=== PATIENT | female | born 1990 | race Two or more races ===

== ENCOUNTER 2017-06-20 12:26 | Emergency (ER) | payer OTHER ==
[2017-06-20 12:35] VITALS: RESP 16; TEMP 98.4
--- NOTE | 2017-06-20 12:46 | CPEKG ---
Heart Rate: 60 RR Interval: 1000 P-R Interval: 176 QRSD Interval: 104 QT Interval: 408 QTC Interval: 408 P Romney: 22 QRS Romney: 40 T Wave Romney: 5 EKG Severity - NORMAL ECG - EKG Impression: SINUS RHYTHM Electronically Signed By: Tony Farris 20-Jun-2017 14:37:22
[2017-06-20] MEDS ORDERED: NS 1,000 ML IV ONE (13:02)
[2017-06-20 13:13] LABS: % IMMATURE GRANULYOCYTES 0.4 % (0.0-1.1); ABSOLUTE IMMATURE GRANULOCYTES 0.04 10^3/uL (0.00-0.10); ADD DIFF? NO; ADD MORPH? NO; ADD SCAN? NO; ATYPICAL LYMPHOCYTE FLAG 0 (0-99); FRAGMENT RBC FLAG 0 (0-99); HEMOGLOBIN 12.1 g/dL (12.6-16.3); LEFT SHIFT FLG 0 (0-99); LIPEMIA HEMOLYSIS FLAG 90 (0-99); MEAN CELL HEMOGLOBIN 28.6 pg (27.9-34.1); MEAN CELL HEMOGLOBIN CONCENTR. 34.6 g/dL (32.4-36.7); MEAN CELL VOLUME 82.7 fL (81.5-99.8); MEAN PLATELET VOLUME 9.5 fL (8.7-11.7); PLATELET CLUMPS FLAG 0 (0-99); PLATELET COUNT 328 10^3/uL (150-400); RED BLOOD CELL COUNT 4.23 10^6/uL (4.18-5.33); RED CELL DISTRIBUTION WIDTH 13.2 % (11.5-15.2)
[2017-06-20] MEDS ORDERED: KETOROLAC 30 MG/1 ML SDV IVP ONE (13:14)
[2017-06-20] MEDS ORDERED: ONDANSETRON 4 MG/2 ML VIAL IVP ONE (13:14)
--- NOTE | 2017-06-20 13:14 | EDPHY ---
H & P Time Seen by Provider: 06/20/17 12:34 HPI/ROS: Chief complaint. Chest pain, shortness of breath HPI. 26-year-old female with 1 day history of central chest pain that radiates through to her back. It is worse with deep breathing. She is slightly short of breath. Slight cough that is nonproductive. New control pill recently. Some leg pain without swelling for the last few days. She has a sore throat. No previous similar symptoms. Headache. Nausea without vomiting. No fever. ROS Constitutional. no fever/chills, no weakness Eyes. no problems with vision ENT. Sore throat Cardiovascular. Chest pain Respiratory. Shortness of breath slight cough Abdominal. Nausea without abdominal pain . no problems urinating MS. right leg pain without swelling Skin. no rash Lymph. no swollen glands Neuro. Headache Past Medical/Surgical History: Hypothyroid; asthma Social History: , nonsmoker, no alcohol Smoking Status: Never smoked Physical Exam: General Appearance: Alert well-developed female mild distress vital signs stable Eyes: Pupils equal and round no pallor or injection. ENT, pharynx injected without exudate Respiratory: Mild inspiratory expiratory rhonchi Cardiovascular: Regular rate and rhythm. Gastrointestinal: Abdomen is soft and nontender, no masses, bowel sounds normal. Neurological: Awake and alert, sensory and motor exams grossly normal. Skin: Warm and dry, no rashes. Musculoskeletal: Neck is supple nontender. Extremities symmetrical, full range of motion. Psychiatric: Patient is oriented X 3, there is no agitation. Constitutional: Initial Vital Signs Temperature (C) 36.9 C 06/20/17 12:31 Heart Rate 68 06/20/17 12:31 Respiratory Rate 16 06/20/17 12:31 Blood Pressure 112/60 06/20/17 12:31 O2 Sat (%) 97 06/20/17 12:31 Allergies/Adverse Reactions: No Known Allergies Allergy (Unverified 06/20/17 12:35) Home Medications: Medication Instructions Recorded Synthroid 10/15/14 Albuterol Sulfate [PROVENTIL HFA] 2 puffs IH Q4-6PRN PRN #1 06/20/17 [email or web address] Hydrocodone/APAP 5/325 [[place] 1 each PO Q4-6PRN PRN #10 tab 06/20/17 5/325 (*)] Medical Decision Making - Diagnostics EKG Interpretation: EKG interpreted by me shows normal sinus rhythm with normal interval and axis. QRS is normal there is no significant ST elevation or depression. No arrhythmia. Rate is 60 Imaging Results: Imaging Impressions Chest X-Ray 06/20/17 13:02 Impression: Normal chest x-ray. Procedures: IV normal saline. Toradol and Zofran IV. Monitor ED Course/Re-evaluation: Re-evaluation 8:00 p.m.. Patient is stable. The patient, her , and I discussed imaging, lab, EKG results. We discussed treatment plan including criteria for return and importance of follow-up and further evaluation. She expresses understanding and agreement Differential Diagnosis: I considered pulmonary embolus, pneumonia, acute coronary syndrome. This appears to be a viral syndrome - Data Points Laboratory Results: Laboratory Results 06/20/17 13:05 06/20/17 13:05 06/20/17 06/20/17 06/20/17 Unknown 13:15 13:05 WBC RBC Hgb Hct MCV MCH MCHC RDW Plt Count MPV Neut % (Auto) Lymph % (Auto) [place] % (Auto) Eos % (Auto) Baso % (Auto) Nucleat RBC Rel Count Absolute Neuts (auto) Absolute Lymphs (auto) Absolute Monos (auto) Absolute Eos (auto) Absolute Basos (auto) Absolute Nucleated RBC Immature Gran % Immature Gran # D-Dimer Sodium Potassium Chloride Carbon Dioxide Anion Gap BUN Creatinine Estimated GFR Glucose Calcium Troponin I Beta HCG, Qual NEGATIVE Group A Strep Screen NEGATIVE (NEGATIVE) Group A Strep DNA Pending 06/20/17 06/20/17 06/20/17 13:05 13:05 13:05 WBC 10.82 10^3/uL H 10^3/uL (3.80-9.50) RBC 4.23 10^6/uL 10^6/uL (4.18-5.33) Hgb 12.1 g/dL L g/dL (12.6-16.3) Hct 35.0 % L % (38.0-47.0) MCV 82.7 fL fL (81.5-99.8) MCH 28.6 pg pg (27.9-34.1) MCHC 34.6 g/dL g/dL (32.4-36.7) RDW 13.2 % % (11.5-15.2) Plt Count 328 10^3/uL 10^3/uL (150-400) MPV 9.5 fL fL (8.7-11.7) Neut % (Auto) 68.0 % % (39.3-74.2) Lymph % (Auto) 24.3 % % (15.0-45.0) [place] % (Auto) 6.1 % % (4.5-13.0) Eos % (Auto) 0.7 % % (0.6-7.6) Baso % (Auto) 0.5 % % (0.3-1.7) Nucleat RBC Rel Count 0.0 % % (0.0-0.2) Absolute Neuts (auto) 7.36 10^3/uL H 10^3/uL (1.70-6.50) Absolute Lymphs (auto) 2.63 10^3/uL 10^3/uL (1.00-3.00) Absolute Monos (auto) 0.66 10^3/uL 10^3/uL (0.30-0.80) Absolute Eos (auto) 0.08 10^3/uL 10^3/uL (0.03-0.40) Absolute Basos (auto) 0.05 10^3/uL 10^3/uL (0.02-0.10) Absolute Nucleated RBC 0.00 10^3/uL 10^3/uL (0-0.01) Immature Gran % 0.4 % % (0.0-1.1) Immature Gran # 0.04 10^3/uL 10^3/uL (0.00-0.10) D-Dimer < 0.27 ug/mLFEU ug/mLFEU (0.00-0.50) Sodium 138 mEq/L mEq/L (134-144) Potassium 4.0 mEq/L mEq/L (3.5-5.2) Chloride 103 mEq/L mEq/L (97-110) Carbon Dioxide 25 mEq/l mEq/l (22-31) Anion Gap 10 mEq/L mEq/L (8-16) BUN 9 mg/dL mg/dL (7-23) Creatinine 0.6 mg/dL mg/dL (0.6-1.0) Estimated GFR > 60 Glucose 109 mg/dL H mg/dL (70-100) Calcium 8.9 mg/dL mg/dL (8.5-10.4) Troponin I < 0.012 ng/mL ng/mL (0.000-0.034) Beta HCG, Qual Group A Strep Screen Group A Strep DNA Medications Given: Discontinued Medications Sodium Chloride (Ns) 1,000 mls @ 0 mls/hr IV ONCE ONE; Wide Open PRN Reason: Protocol Stop: 06/20/17 13:03 Last Admin: 06/20/17 13:29 Dose: 1,000 mls Ketorolac Tromethamine (Toradol) 30 mg IVP EDNOW ONE Stop: 06/20/17 13:15 Last Admin: 06/20/17 13:29 Dose: 30 mg Ondansetron HCl (Zofran) 4 mg IVP EDNOW ONE Stop: 06/20/17 13:15 Last Admin: 06/20/17 13:29 Dose: 4 mg Departure - Departure Disposition: Home, Routine, Self-Care Clinical Impression: Acute bronchitis Qualifiers: Bronchitis organism: unspecified organism Qualified Code(s): J20.9 - Acute bronchitis, unspecified Condition: Good Instructions: Acute Bronchitis (ED) Additional Instructions: Inhaler using 2 puffs every 4 hours to help with breathing. Ibuprofen 600 mg every 6 hours for discomfort. Hydrocodone in addition if needed for discomfort. Return for worsening symptoms. Recheck in 2-3 days if not improving Referrals: [facility] [Other] - As per Instructions [facility] [Outside] - As per Instructions Stand Alone Forms: Work Excuse Prescriptions: Albuterol Sulfate [PROVENTIL HFA] 2 puffs IH Q4-6PRN PRN #1 [email or web address] PRN Reason: Short Of Breath/Dyspnea Hydrocodone/APAP 5/325 [[place] 5/325 (*)] 1 each PO Q4-6PRN PRN #10 tab PRN Reason: Pain, Moderate
[2017-06-20 13:26] LABS: ANION GAP 10 mEq/L (8-16); CALCIUM 8.9 mg/dL (8.5-10.4); CARBON DIOXIDE 25 mEq/l (22-31); CHLORIDE 103 mEq/L (97-110); CREATININE 0.6 mg/dL (0.6-1.0); GLOMERULAR FILTRATION RATE > 60; GLUCOSE 109 mg/dL (70-100); SODIUM 138 mEq/L (134-144)
[2017-06-20 13:38] LABS: TROPONIN I < 0.012 ng/mL (0.000-0.034)
[2017-06-20 14:49] VITALS: BP 109/70; PULSE 80; O2SAT 98
[2017-06-21] MEDS ORDERED: BICILLIN L-A 1200000 UNIT/2 ML SYRINGE IM ONE (08:47)
== END 2017-06-20 14:47 | disposition home or self-care (01) ==
LOC: CED 12:26
DX: J20.9 Acute bronchitis, unspecified (principal); J45.909 Unspecified asthma, uncomplicated; E86.9 Volume depletion, unspecified
CPT/HCPCS: 71010-PO; 80048-PO; 84484-PO; 84703-PO; 85025-PO; 85378-PO; 87880-PO; 96374; J0561; J1885; J2405

== ENCOUNTER 2017-06-23 14:45 | Emergency (ER) | payer OTHER ==
--- NOTE | 2017-06-23 15:01 | EDPHY ---
H & P Time Seen by Provider: 06/23/17 14:58 HPI/ROS: 26-year-old female presents complaining of she feels like her pills may be stuck behind her left tonsil. She was seen here earlier in the week and diagnosed as a bronchitis, likely viral syndrome. She has had no problems swallowing liquids or solids. Today she denies fevers or chills she denies cough she denies pain. Her main complaint is that she has a sensation when she swallows, that there may pills stuck in her throat on the left. Review of systems As per HPI General no fever no chills no weakness HEENT no eye pain no eye discharge. No eye redness, positive sore throat Respiratory no cough, no shortness of breath Cardiac no chest pain, no peripheral edema GI no abdominal pain, no diarrhea, no constipation, no nausea, no vomiting no flank pain, no hematuria, no dysuria Musculoskeletal no myalgias, no joint pain Heme no easy bruising, no easy bleeding Endo no polyuria, no polydipsia Skin no rashes, no pruritus Neuro no syncope, no dizziness, no headaches Psych is no suicidal ideation, no homicidal ideation Past Medical/Surgical History: Hypothyroidism Social History: Denies alcohol or drug use Smoking Status: Never smoked Physical Exam: 26-year-old male alert and oriented no acute distress nontoxic appearance afebrile No alteration in her voice, no stridor, no difficulty breathing HEENT atraumatic normocephalic, extraocular muscles intact, anicteric Oropharynx mild erythema and swelling at left tonsil no uvular deviation no exudate Neck supple no meningismus, no lymphadenopathy Lungs clear to auscultation bilaterally Heart regular rate and rhythm without murmur rub or gallop Abdomen nondistended normoactive bowel sounds soft nontender Back no CVA tenderness, no step-offs, no spinal tenderness Extremities no cyanosis clubbing or edema Neuro alert and oriented, no focal deficits Constitutional: Initial Vital Signs Temperature (C) 37 C 06/23/17 14:50 Heart Rate 72 06/23/17 14:50 Respiratory Rate 16 06/23/17 14:50 Blood Pressure 126/85 H 06/23/17 14:50 O2 Sat (%) 96 06/23/17 14:50 O2 Delivery Mode Room Air Allergies/Adverse Reactions: No Known Allergies Allergy (Unverified 06/20/17 12:35) Home Medications: Medication Instructions Recorded Synthroid 10/15/14 Albuterol Sulfate [PROVENTIL HFA] 2 puffs IH Q4-6PRN PRN #1 06/20/17 [email or web address] Hydrocodone/APAP 5/325 [[place] 1 each PO Q4-6PRN PRN #10 tab 06/20/17 5/325 (*)] Medical Decision Making - Diagnostics Imaging Results: Imaging Impressions Soft Tissue Neck X-Ray 06/23/17 15:12 Impression: 1. Edema and thickening of the epiglottis and aryepiglottic folds. ED Course/Re-evaluation: Patient seen and evaluated for sensation of pills stuck in her throat Differential diagnosis considered Pharyngitis, pharyngeal contusion, foreign body lodged in throat Soft tissue neck Vallecular swelling Physical exam No evidence of foreign body Mild erythema and edema of left tonsil,? Possible contusion Patient given 5 mL 2% viscous lidocaine with marked relief. Patient also given 1 dose of dexamethasone for swelling. Impression Pharyngitis Versus left tonsillar contusion Plan Rest Acetaminophen or ibuprofen as needed for pain Drink plenty of liquids Return if worsening - Data Points Medications Given: Discontinued Medications Dexamethasone (Decadron Injection) 8 mg PO EDNOW ONE Stop: 06/23/17 16:11 Last Admin: 06/23/17 16:17 Dose: 8 mg Lidocaine (Lidocaine 2% Viscous) 5 ml PO EDNOW ONE Stop: 06/23/17 15:19 Last Admin: 06/23/17 15:44 Dose: 5 ml Departure - Departure Disposition: Home, Routine, Self-Care Clinical Impression: Sore throat Condition: Good Instructions: Pharyngitis (ED) Referrals: ROOPA HADLEY,Luis [Primary Care Provider] - As per Instructions
[2017-06-23] MEDS ORDERED: LIDOCAINE 2% VISCOUS 15 ML UDCUP PO ONE (15:18)
[2017-06-23] MEDS ORDERED: DEXAMETHASONE 10 MG/ML VIAL PO ONE (16:10)
[2017-06-23 16:23] VITALS: BP 118/52; PULSE 71; RESP 18; TEMP 97.7; O2SAT 98
== END 2017-06-23 16:20 | disposition home or self-care (01) ==
LOC: CED 14:45
DX: J02.9 Acute pharyngitis, unspecified (principal)
CPT/HCPCS: 70360-PO; J1100

== ENCOUNTER 2017-06-24 19:59 | Emergency (ER) | payer OTHER ==
[2017-06-24 20:05] VITALS: O2SAT 96
--- NOTE | 2017-06-24 20:58 | EDPHY ---
H & P Time Seen by Provider: 06/24/17 20:19 HPI/ROS: 26-year-old female presents complaining of ongoing sensation of something stuck in her throat. She was seen here yesterday with similar complaint, with normal plain films. She is able to eat solids and liquids and swallow pills but still has a feeling that a pill is stuck in her throat. No fevers or chills Review of systems As per HPI General no fever no chills no weakness HEENT no eye pain no eye discharge. No eye redness, positive painful swallowing/ sore throat Respiratory no cough, no shortness of breath Cardiac no chest pain, no peripheral edema GI no abdominal pain, no diarrhea, no constipation, no nausea, no vomiting no flank pain, no hematuria, no dysuria Musculoskeletal no myalgias, no joint pain Heme no easy bruising, no easy bleeding Endo no polyuria, no polydipsia Skin no rashes, no pruritus Neuro no syncope, no dizziness, positive headaches Psych is no suicidal ideation, no homicidal ideation Past Medical/Surgical History: Hypothyroidism Social History: Lives with family Smoking Status: Never smoked Physical Exam: 26-year-old female alert and oriented no acute distress nontoxic appearance afebrile tolerating her own CIS creation No change in her voice HEENT atraumatic normocephalic, extraocular muscles intact, anicteric Oropharynx negative for erythema negative exudate, tolerating her own secretions No visible foreign body, normal tonsils normal uvula Improved from yesterday where left tonsil was mildly erythematous Neck supple no meningismus Lungs clear to auscultation bilaterally Heart regular rate and rhythm without murmur rub or gallop Abdomen nondistended normoactive bowel sounds soft nontender Back no CVA tenderness, no step-offs, no spinal tenderness Extremities no cyanosis clubbing or edema Neuro alert and oriented, no focal deficits Constitutional: Initial Vital Signs Temperature (C) 36.8 C 06/24/17 20:01 Heart Rate 85 06/24/17 20:01 Respiratory Rate 18 06/24/17 20:01 Blood Pressure 114/67 06/24/17 20:01 O2 Sat (%) 96 06/24/17 20:01 O2 Delivery Mode Room Air Allergies/Adverse Reactions: No Known Allergies Allergy (Unverified 06/20/17 12:35) Home Medications: Medication Instructions Recorded Synthroid 10/15/14 Albuterol Sulfate [PROVENTIL HFA] 2 puffs IH Q4-6PRN PRN #1 06/20/17 [email or web address] Hydrocodone/APAP 325 [[place] 1 each PO Q4-6PRN PRN #10 tab 06/20/17 [id number] (*)] Medical Decision Making - Diagnostics Imaging Results: Imaging Impressions Neck CT 06/24/17 21:07 Impression: Normal CT neck with IV contrast. No evidence for radiopaque foreign body. Results called and discussed with Cinthya Jimenez MD at 06/24/2017 22:41. ED Course/Re-evaluation: Patient seen and evaluated for painful swallowing sensation of a pill stuck in her throat. CT scan soft tissue neck negative for any pathology no fluid collections no abscess no soft tissue swelling, no radiopaque foreign body Differential diagnosis considered Pharyngitis, pharyngitis foreign body Unable to identify the source of this patient's discomfort, normal physical exam and normal soft tissue CT neck. Advised patient to follow up with ENT on Sunday if continuing to have symptoms. - Data Points Laboratory Results: Laboratory Results 06/24/17 21:23 06/24/17 21:23 06/24/17 06/24/17 06/24/17 21:23 21: 21:23 WBC 14.01 10^3/uL H 10^3/uL (3.80-9.50) RBC 4.23 10^6/uL 10^6/uL (4.18-5.33) Hgb 12.0 g/dL L g/dL (12.6-16.3) Hct 35.3 % L % (38.0-47.0) MCV 83.5 fL fL (81.5-99.8) MCH 28.4 pg pg (27.9-34.1) MCHC 34.0 g/dL g/dL (32.4-36.7) RDW 13.4 % % (11.5-15.2) Plt Count 276 10^3/uL 10^3/uL (150-400) MPV 10.3 fL fL (8.7-11.7) Neut % (Auto) 62.8 % % (39.3-74.2) Lymph % (Auto) 28.0 % % (15.0-45.0) [place] % (Auto) 8.1 % % (4.5-13.0) Eos % (Auto) 0.3 % L % (0.6-7.6) Baso % (Auto) 0.4 % % (0.3-1.7) Nucleat RBC Rel Count 0.0 % % (0.0-0.2) Absolute Neuts (auto) 8.81 10^3/uL H 10^3/uL (1.70-6.50) Absolute Lymphs (auto) 3.92 10^3/uL H 10^3/uL (1.00-3.00) Absolute Monos (auto) 1.13 10^3/uL H 10^3/uL (0.30-0.80) Absolute Eos (auto) 0.04 10^3/uL 10^3/uL (0.03-0.40) Absolute Basos (auto) 0.05 10^3/uL 10^3/uL (0.02-0.10) Absolute Nucleated RBC 0.00 10^3/uL 10^3/uL (0-0.01) Immature Gran % 0.4 % % (0.0-1.1) Immature Gran # 0.06 10^3/uL 10^3/uL (0.00-0.10) Sodium 139 mEq/L mEq/L (134-144) Potassium 3.8 mEq/L mEq/L (3.5-5.2) Chloride 102 mEq/L mEq/L (97-110) Carbon Dioxide 24 mEq/l mEq/l (22-31) Anion Gap 13 mEq/L mEq/L (8-16) BUN 12 mg/dL mg/dL (7-23) Creatinine 0.8 mg/dL mg/dL (0.6-1.0) Estimated GFR > 60 Glucose 156 mg/dL H mg/dL (70-100) Calcium 9.3 mg/dL mg/dL (8.5-10.4) Beta HCG, Qual NEGATIVE Medications Given: Discontinued Medications Acetaminophen (Tylenol) 1,000 mg PO EDNOW ONE Stop: 06/24/17 21:29 Last Admin: 06/24/17 21:31 Dose: 1,000 mg Departure - Departure Disposition: Home, Routine, Self-Care Clinical Impression: Painful swallowing Condition: Good Instructions: Dysphagia (ED) Referrals: ROOPA HADLEY,Luis [Primary Care Provider] - As per Instructions Juan Hatch MD [Medical Doctor] - As per Instructions Print Language: Kenyan
[2017-06-24] MEDS ORDERED: IOPAMIDOL (ISOVUE-300) 100 ML BTL ONE ×2 (21:20→21:27)
[2017-06-24] MEDS ORDERED: ACETAMINOPHEN 500 MG TAB PO ONE (21:28)
[2017-06-24 21:30] LABS: % IMMATURE GRANULYOCYTES 0.4 % (0.0-1.1); ABSOLUTE IMMATURE GRANULOCYTES 0.06 10^3/uL (0.00-0.10); ADD DIFF? NO; ADD MORPH? NO; ADD SCAN? NO; ATYPICAL LYMPHOCYTE FLAG 0 (0-99); FRAGMENT RBC FLAG 0 (0-99); HEMATOCRIT 35.3 % (38.0-47.0); LEFT SHIFT FLG 0 (0-99); LIPEMIA HEMOLYSIS FLAG 90 (0-99); MEAN CELL HEMOGLOBIN 28.4 pg (27.9-34.1); MEAN CELL VOLUME 83.5 fL (81.5-99.8); MEAN PLATELET VOLUME 10.3 fL (8.7-11.7); PLATELET CLUMPS FLAG 40 (0-99); PLATELET COUNT 276 10^3/uL (150-400); RED BLOOD CELL COUNT 4.23 10^6/uL (4.18-5.33); RED CELL DISTRIBUTION WIDTH 13.4 % (11.5-15.2)
[2017-06-24 21:42] LABS: ANION GAP 13 mEq/L (8-16); CALCIUM 9.3 mg/dL (8.5-10.4); CARBON DIOXIDE 24 mEq/l (22-31); CHLORIDE 102 mEq/L (97-110); CREATININE 0.8 mg/dL (0.6-1.0); GLOMERULAR FILTRATION RATE > 60; GLUCOSE 156 mg/dL (70-100); POTASSIUM 3.8 mEq/L (3.5-5.2); SODIUM 139 mEq/L (134-144)
[2017-06-24 22:47] VITALS: BP 114/62; PULSE 80; RESP 16; TEMP 98.4
== END 2017-06-24 23:06 | disposition home or self-care (01) ==
LOC: CED 19:59
DX: R13.10 Dysphagia, unspecified (principal)
CPT/HCPCS: 70491-PO; 80048-PO; 84703-PO; 85025-PO; Q9967

== ENCOUNTER 2017-09-09 01:02 | Emergency (ER) | payer OTHER ==
[2017-09-09 01:13] VITALS: RESP 18
[2017-09-09] MEDS ORDERED: ACETAMINOPHEN 500 MG TAB ONE (01:19)
[2017-09-09] MEDS ORDERED: ONDANSETRON DISINTEGRATING 4 MG TAB ONE (01:19)
[2017-09-09] MEDS ORDERED: ACETAMINOPHEN 500 MG TAB PO ONE (01:21)
[2017-09-09] MEDS ORDERED: ONDANSETRON DISINTEGRATING 4 MG TAB PO ONE (01:21)
[2017-09-09 01:32] LABS: COLOR YELLOW; LEUKOCYTE ESTERASE,URINE NEGATIVE (NEGATIVE); NITRITE,URINE NEGATIVE (NEGATIVE)
[2017-09-09] MEDS ORDERED: METOCLOPRAMIDE 10 MG/2 ML VIAL IVP ONE (02:24)
[2017-09-09] MEDS ORDERED: NS 1,000 ML IV ONE (02:24)
[2017-09-09] MEDS ORDERED: KETOROLAC 30 MG/1 ML SDV IVP ONE (02:24)
--- NOTE | 2017-09-09 02:26 | EDPHY ---
H & P Stated Complaint: abd pain and headache x 2 days with nausea HPI/ROS: This 27-year-old female presents to the emergency department tonight with complaints of a headache for the last 3 days. This came on gradually and starts at the back of her head and radiates to the top of her head. It also radiates to her right neck. She describes it as a hot sensation. Turning her head makes it worse. It started out at about a 7 or 8/10 and is now a 9/10. She came in tonight because it got more intense. She has nausea with the headache but denies fever, sore throat, stiff neck, numbness, tingling, or weakness. She has no visual disturbances. She took Excedrin at 11:00 a.m. yesterday which helped slightly. She also took ibuprofen at 4:00 p.m. yesterday. She has been to the ER for headaches in the past but does not take any medications for headaches on a regular basis. She denies trauma to her head or neck but has been working a long stretch at work. She cooks in a restaurant. She is right handed. She also describes some suprapubic discomfort which is unrelated to her headache. This started last night. She rates it at an 8/10. She describes it as feeling as if she was punched. It does not radiate. She denies dysuria or vaginal discharge. No recent illness. REVIEW OF SYSTEMS: Constitutional: No fever, no chills. Eyes: No discharge. ENT: No sore throat. Respiratory: No cough, no shortness of breath. Cardiac: No chest pain, no palpitations. Gastrointestinal: See HPI. No vomiting. Genitourinary: No hematuria. Musculoskeletal: No back pain. Skin: No rashes. Neurological: See HPI. Source: Patient, Family Exam Limitations: No limitations - Personal History LMP (Females 10-55): 1-7 Days Ago Current Tetanus/Diphtheria Vaccine: Yes Current Tetanus Diphtheria and Acellular Pertussis (TDAP): Yes - Medical/Surgical History PMH: PMH: Hypothyroidism, asthma PSH: Umbilical herniorrhaphy FH: Mother has diabetes and leukemia; father in good health No known drug allergies Medications include levothyroxine, albuterol, Qvar, Excedrin p.r.n. 3 para 2 with 1 miscarriage Hx Asthma: Yes Hx Chronic Respiratory Disease: No Hx Diabetes: Yes Hx Cardiac Disease: No Hx Renal Disease: No Hx Cirrhosis: No Hx Alcoholism: No Hx HIV/AIDS: No Hx Splenectomy or Spleen Trauma: No Other PMH: Miscarriage 2012. strep throat, pre diabetes - Family History Significant Family History: Cancer, Diabetes - Social History Smoking Status: Never smoked Alcohol Use: Occasionally Drug Use: None Additional Social History: . 2 children. Works as a cook in a restaurant. - Physical Exam Exam: General Appearance: Alert, mild distress. Eyes: Pupils equal and round no pallor or injection. Fundi benign. ENT, Mouth: Mucous membranes are moist. No erythema or exudate. Respiratory: There are no retractions, lungs are clear to auscultation. Cardiovascular: Regular rate and rhythm. No murmurs, gallops or rubs. Gastrointestinal: Abdomen is soft and minimal suprapubic discomfort to palpation, no masses, bowel sounds normal. Neurological: Awake and alert, sensory and motor exams grossly normal. Skin: Warm and dry, no rashes. Musculoskeletal: Neck is supple, mild right paraspinal tenderness. Extremities are symmetrical, full range of motion. No calf swelling or tenderness. Psychiatric: Patient is oriented X 3, there is no agitation. DIFFERENTIAL DIAGNOSIS: After history and physical exam differential diagnosis was considered for but not limited to: migraine headache, tension headache, musculoskeletal pain, UTI, Constitutional: Initial Vital Signs Temperature (C) 97.9 F 09/09/17 01:11 Heart Rate 75 09/09/17 01:11 Respiratory Rate 18 09/09/17 01:11 Blood Pressure 114/74 09/09/17 01:11 O2 Sat (%) 98 09/09/17 01:11 O2 Delivery Mode Room Air Allergies/Adverse Reactions: No Known Allergies Allergy (Unverified 06/20/17 12:35) Home Medications: Medication Instructions Recorded Synthroid 10/15/14 Albuterol Sulfate [PROVENTIL HFA] 2 puffs IH Q4-6PRN PRN #1 06/20/17 [email or web address] Hydrocodone/APAP 5/325 [[place] 1 each PO Q4-6PRN PRN #10 tab 06/20/17 5/325 (*)] Promethazine HCl [Phenergan 25mg 25 mg PO Q6H PRN 3 Days #12 tab 11/19/17 (*)] Medical Decision Making ED Course/Re-evaluation: The patient was seen and examined. Vital signs reviewed. Urinalysis was negative for infection and there was no glucosuria. Urine negative. Patient received Tylenol and Zofran by nursing prior to my evaluation. She was then given a L of IV fluids, Toradol, metoclopramide, and Benadryl with good relief of her headache. She states she is ready to go home. I will give her prescription for Phenergan which she can take with Tylenol or ibuprofen. She has the next 2 days off of work to rest. I suspect this is a tension headache. She will follow up with her regular provider if the headache returns or return to the emergency room sooner if worse. - Data Points Laboratory Results: 09/09/17 09/09/17 01:14 01:14 Urine Color YELLOW Urine Appearance CLEAR Urine pH 6.0 (5.0-7.5) Ur Specific [place] <= 1.005 (1.002-1.030) Urine Protein NEGATIVE (NEGATIVE) Urine Ketones NEGATIVE (NEGATIVE) Urine Blood NEGATIVE (NEGATIVE) Urine Nitrate NEGATIVE (NEGATIVE) Urine Bilirubin NEGATIVE (NEGATIVE) Urine Urobilinogen 0.2 EU EU (0.2-1.0) Ur Leukocyte Esterase NEGATIVE (NEGATIVE) Urine Glucose NEGATIVE (NEGATIVE) Urine Test NEGATIVE Medications Given: Discontinued Medications Acetaminophen (Tylenol) 1,000 mg PO EDNOW ONE Stop: 09/09/17 01:22 Last Admin: 09/09/17 01:22 Dose: 1,000 mg Diphenhydramine HCl (Benadryl Injection) 25 mg IVP EDNOW ONE Stop: 09/09/17 02:25 Last Admin: 09/09/17 02:31 Dose: 25 mg Sodium Chloride (Ns) 1,000 mls @ 0 mls/hr IV ONCE ONE; Wide Open PRN Reason: Protocol Stop: 09/09/17 02:25 Last Admin: 09/09/17 02:31 Dose: 1,000 mls Ketorolac Tromethamine (Toradol) 30 mg IVP EDNOW ONE Stop: 09/09/17 02:25 Last Admin: 09/09/17 02:31 Dose: 30 mg Metoclopramide HCl (Reglan Injection) 10 mg IVP EDNOW ONE Stop: 09/09/17 02:25 Last Admin: 09/09/17 02:31 Dose: 10 mg Ondansetron HCl (Zofran Odt) 4 mg PO EDNOW ONE Stop: 09/09/17 01:22 Last Admin: 09/09/17 01:22 Dose: 4 mg Departure - Departure Disposition: Home, Routine, Self-Care Clinical Impression: Acute tension headache Qualifiers: Intractability: not intractable Qualified Code(s): G44.209 - Tension-type headache, unspecified, not intractable Condition: Good Instructions: Tension Headache (ED), General Headache (ED) Additional Instructions: Rest, drink plenty of fluids. Tylenol or ibuprofen for pain. You were given a prescription for Promethazine (also known as Phenergan) for nausea but this medication also helps relieve headache in conjunction with the other medications. Follow up with your clinic if your headache returns or return to the ER if symptoms worsen as discussed. Referrals: [facility],. [Clinic] - Follow Up Only If Needed Prescriptions: Promethazine HCl [Phenergan 25mg (*)] 25 mg PO Q6H PRN 3 Days #12 tab PRN Reason: Nausea/Vomiting, Use 1st Print Language: Cypriot
[2017-09-09 03:29] VITALS: TEMP 98.4; O2SAT 96
[2017-09-09 03:33] VITALS: BP 109/69; PULSE 68
== END 2017-09-09 03:39 | disposition home or self-care (01) ==
LOC: CED 01:02
PROC: 3E0337Z Introduction of Electrolytic and Water Balance Substance into Peripheral Vein, Percutaneous Approach (ICD-10-PCS; principal; 2017-09-09)
DX: G44.209 Tension-type headache, unspecified, not intractable (principal); J45.909 Unspecified asthma, uncomplicated; E86.9 Volume depletion, unspecified
CPT/HCPCS: 81003-PO; 81025-PO; 96374; J1200; J1885; J2765